=== PATIENT | female | born 1975 | race Caucasian/White ===

== ENCOUNTER 2017-09-28 17:12 | Inpatient (IN) | payer BC ==
[~2017-09-28] VITALS: Ht 152.4 cm; Wt 95.8 kg
[2017-09-28 17:39] LABS: BASOPHIL % 0.2 % (0-2); PLATELET COUNT 274 x10^3mcL (130-400); RED CELL DISTRIBUTION WIDTH 14.4 % (11.5-14.5)
[2017-09-28 17:49] LABS: CALCIUM 8.4 mg/dL (8.5-10.1); CARBON DIOXIDE 25.1 mmol/L (21-32); CHLORIDE SERUM 105 mmol/L (98-107); CREATININE SERUM 0.7 mg/dL (0.6-1.0); GFR1 > 60 mL/min; GLUCOSE SERUM 137 mg/dL (74-106); POTASSIUM SERUM 3.4 mmol/L (3.5-5.1); SODIUM SERUM 137 mmol/L (136-145)
[2017-09-28 17:53] LABS: ALBUMIN 3.6 g/dL (3.4-5.0); ALKALINE PHOSPHATASE 94 U/L (46-116); ALT/SGPT 35 U/L (14-59); AMYLASE 82 U/L (25-115); AST/SGOT 51 U/L (15-37); BILIRUBIN TOTAL 0.5 mg/dL (0.20-1.00); LIPASE 468 IU/L (73-393); TOTAL PROTEIN, SERUM 7.6 g/dL (6.4-8.2)
[2017-09-28 20:37] VITALS: BP 167/101
[2017-09-28 20:44] LABS: MAGNESIUM 1.8 mg/dL (1.8-2.4); PHOSPHOROUS 3.2 mg/dL (2.5-4.9)
[2017-09-28 20:45] LABS: CHOLESTEROL/HDL RATIO 2.2
[2017-09-28 21:10] LABS: FREE T4 1.3 ng/dL (0.76-1.46); FREE THYROXINE INDEX 3.7 ug/dL (1.4-4.5); T4(THYROXINE) 10.2 ug/dL (4.7-13.3)
[2017-09-28 22:18] VITALS: BP 147/102
[2017-09-29] VITALS (7 sets, daily range): BP systolic 122–147; BP diastolic 76–95; Ht 152.4 cm; Wt 95.8 kg
[2017-09-29 03:52] LABS: microscopic required? YES; urine erythrocyte TRACE (NEGATIVE)
[2017-09-29 04:03] LABS: AMPHETAMINE QUAL UR NONE DETECTED (NEG <=1000)
[2017-09-29 08:38] LABS: CALCIUM 8.3 mg/dL (8.5-10.1); CARBON DIOXIDE 27.6 mmol/L (21-32); CHLORIDE SERUM 106 mmol/L (98-107); CREATININE SERUM 0.7 mg/dL (0.6-1.0); GFR1 > 60 mL/min; GLUCOSE SERUM 101 mg/dL (74-106); MAGNESIUM 2.2 mg/dL (1.8-2.4); PHOSPHOROUS 3.6 mg/dL (2.5-4.9); POTASSIUM SERUM 4.1 mmol/L (3.5-5.1); SODIUM SERUM 139 mmol/L (136-145)
[2017-09-29 08:43] LABS: BASOPHIL % 0.1 % (0-2); PLATELET COUNT 280 x10^3mcL (130-400)
[2017-09-29 08:44] LABS: RED CELL DISTRIBUTION WIDTH 15.5 % (11.5-14.5)
[2017-09-30 05:44] VITALS: BP 138/83
[2017-09-30] MEDS ORDERED: CARL PO (06:08)
[2017-09-30] MEDS ORDERED: PRE30 PO (06:08)
[2017-09-30] MEDS ORDERED: LEVAQUIN750 MG PO (06:09)
[2017-09-30] MEDS ORDERED: LAC PO (06:09)
[2017-09-30] MEDS ORDERED: TYLENOL325 M1 PO (06:11)
[2017-09-30 07:44] LABS: CALCIUM 7.9 mg/dL (8.5-10.1); CARBON DIOXIDE 25.5 mmol/L (21-32); CHLORIDE SERUM 108 mmol/L (98-107); CREATININE SERUM 0.6 mg/dL (0.6-1.0); GFR1 > 60 mL/min; GLUCOSE SERUM 92 mg/dL (74-106); POTASSIUM SERUM 3.6 mmol/L (3.5-5.1); SODIUM SERUM 140 mmol/L (136-145)
[2017-09-30 07:46] LABS: BASOPHIL % 0.2 % (0-2); PLATELET COUNT 235 x10^3mcL (130-400)
[2017-09-30 09:29] VITALS: BP 145/84
[2017-09-30 13:41] VITALS: BP 145/91
[2017-09-30 15:03] VITALS: BP 150/101
[2017-09-30 15:30] VITALS: BP 145/91
== END 2017-09-30 16:25 | disposition home or self-care (01) | DRG 438 ==
LOC: ED 17:12 → DU 19:46
PROVIDERS: Emergency Medicine; Family Medicine; Internal Medicine
PROC: 0DB68ZX Excision of Stomach, Via Natural or Artificial Opening Endoscopic, Diagnostic (ICD-10-PCS; 2017-09-29)
PROC: 0DB48ZX Excision of Esophagogastric Junction, Via Natural or Artificial Opening Endoscopic, Diagnostic (ICD-10-PCS; principal; 2017-09-29 11:00)
DX: K85.90 Acute pancreatitis without necrosis or infection, unspecified (principal); N17.0 Acute kidney failure with tubular necrosis; K22.10 Ulcer of esophagus without bleeding; N39.0 Urinary tract infection, site not specified; I10 Essential (primary) hypertension; E78.5 Hyperlipidemia, unspecified; K22.2 Esophageal obstruction; K91.1 Postgastric surgery syndromes; Y83.8 Other surgical procedures as the cause of abnormal reaction of the patient, or of later complication, without mention of misadventure at the time of the procedure; Y92.89 Other specified places as the place of occurrence of the external cause; Z88.8 Allergy status to other drugs, medicaments and biological substances; Z90.49 Acquired absence of other specified parts of digestive tract
CPT/HCPCS: 43235; 83880; 84439; J0696; J1200; J1610; J1885; J2250; J2310; J3010; J3490; J7030; Q0092; Q9967